=== PATIENT | female | born 1980 | race African-American/Black ===

== ENCOUNTER 2019-11-19 15:48 | Emergency (ER) | payer MEDICAID ==
[~2019-11-19] VITALS: Ht 170.2 cm; Wt 79.4 kg
[2019-11-19 16:26] LABS: *URINE HCG, QUAL NEGATIVE (NEGATIVE)
--- NOTE | 2019-11-19 17:59 | NUR ---
Patient discharged to home in stable conditon with brisk steady gait. Written and verbal after care instructions given to patient. Patient verbalizes understanding and compliance of instructions.
== END 2019-11-19 18:00 | disposition home or self-care (01) ==
LOC: ER 15:50
DX: N63.0 Unspecified lump in unspecified breast (principal)
CPT/HCPCS: 76642; 84703; A4663

== ENCOUNTER 2019-12-28 11:15 | Emergency (ER) | payer MEDICAID ==
[~2019-12-28] VITALS: Ht 170.2 cm; Wt 77.1 kg
--- NOTE | 2019-12-28 11:55 | NUR ---
PATIENT WAS SEEN BY MD. RAINEY AND FOLLOW UP INSTRUCTIONS GIVEN AND EXPLAINED TO PATIENT WHO STATES SHE UNDERSTANDS ALL INSTRUCTIONS
== END 2019-12-28 11:57 | disposition home or self-care (01) ==
LOC: ER 11:15
DX: R21 Rash and other nonspecific skin eruption (principal); Z60.2 Problems related to living alone
CPT/HCPCS: A4663

== ENCOUNTER 2020-04-15 12:40 | Emergency (ER) | payer MEDICAID ==
[~2020-04-15] VITALS: Ht 170.2 cm; Wt 75.3 kg
--- NOTE | 2020-04-15 13:10 | NUR ---
Dr. Pompa at bedside for MSE
[2020-04-15 13:52] LABS: BASOPHILS # (AUTO) 0.1 K/uL (0.0-8.0); BASOPHILS % (AUTO) 1.8 % (0.0-2.0); EOSINOPHILS # (AUTO) 0.1 K/uL (0.0-0.7); EOSINOPHILS % (AUTO) 2.3 % (0.0-7.0); HEMATOCRIT 38.4 % (31.2-41.9); HEMOGLOBIN 12.7 g/dL (10.9-14.3); LYMPHOCYTES % (AUTO) 41.3 % (20.5-51.5); MEAN CORPUSCULAR HGB CONC 33 g/dL (32.3-35.6); MEAN CORPUSCULAR VOLUME 87.6 fL (75.5-95.3); MONOCYTES # (AUTO) 0.4 K/uL (2.0-10.0); MONOCYTES % (AUTO) 7.1 % (0.0-11.0); NEUTROPHILS # (AUTO) 2.3 K/uL (1.8-8.9); NEUTROPHILS % (AUTO) 47.5 % (38.5-71.5); PLATELET COUNT (AUTO) 210 K/uL (179-408); RED BLOOD CELL COUNT(AUTO) 4.38 MIL/uL (3.63-4.92); WHITE BLOOD COUNT (AUTO) 4.9 K/uL (3.8-11.8)
--- NOTE | 2020-04-15 14:37 | NUR ---
Patient discharged to home in stable condition. Written and verbal after care instructions given. Patient verbalizes understanding of instructions. Stressed follow up or return to ER for worsening s/s. Patient ambulating with steady gait. NAD noted
[2020-04-15 14:40] VITALS: BP 124/63
== END 2020-04-15 14:37 | disposition home or self-care (01) ==
LOC: ER 12:47
DX: L01.03 Bullous impetigo (principal)
CPT/HCPCS: 36415; 85025; 86140; 86592; A4663